=== PATIENT | female | born 2000 | race Caucasian/White ===

== ENCOUNTER 2022-03-14 17:26 | Emergency (ER) | payer OTHER ==
--- NOTE | 2022-03-14 18:08 | RAD REPORT ---
EXAM DESCRIPTION: RAD - Foot Left 3 View - 03/14/2022 6:02 pm CLINICAL HISTORY: PAIN COMPARISON: RIGHT FOOT W COMPARISON dated 05/24/2011 FINDINGS: Small calcaneal spurs are present. No acute fracture or dislocation is seen.
[2022-03-14] MEDS ORDERED: MORPHINE 4 MG/ML SYR ONE (20:36)
--- NOTE | 2022-03-14 20:40 | EDPHYS ---
Physician Documentation [facility] Name: Mayte Burton Age: 22 yrs Sex: Female : 2000 Arrival Date: 03/14/2022 Time: 17:30 Bed Treatment Private MD: ED Physician Logan Villalpando HPI: 03/14 17:53 This 22 yrs old Female presents to ER via Unassigned with complaints of Left Foot Pain. pm1 17:53 The patient presents with pain. The complaints affect the medial aspect of left foot. pm1 Context: resulted from an unknown cause, the patient can partially bear weight, the patient is able to ambulate, with moderate difficulty. 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 Modifying factors: The symptoms are alleviated by nothing. the symptoms are aggravated by weight bearing. Associated signs and symptoms: The patient has no apparent associated signs or symptoms, Pertinent negatives numbness, tingling. Treatment prior to arrival includes: prescription medications, hydrocodone. Severity of symptoms: in the emergency department the symptoms are actually worse. The patient has experienced similar episodes in the past, chronically. The patient has been recently seen by a physician: a timber estimator, yesterday, with similar presenting complaints, Patient was given steroid injection to the foot and given topical medications and wrap, hydrocodone for pain as needed. She was diagnosed with plantar fasciitis. 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 Flu vaccine is not up to date. - Social history:: Smoking status: Patient reports the use of cigarette tobacco products, denies chronic smoking, but will smoke occasionally, Patient uses alcohol, occasionally. ROS: 17:53 Constitutional: Negative for fever, chills, and weight loss, Cardiovascular: Negative pm1 for chest pain, palpitations, and edema, Respiratory: Negative for shortness of breath, cough, wheezing, and pleuritic chest pain. 17:53 Skin: Negative for injury, rash, and discoloration, Neuro: Negative for headache, weakness, numbness, tingling, and seizure. 17:53 MS/extremity: Positive for pain, of the medial aspect of left foot, Negative for decreased range of motion, deformity. 17:53 All other systems are negative. Exam: 20:33 Constitutional: This is a well developed, well nourished patient who is awake, alert, pm1 and in no acute distress. Head/Face: Normocephalic, atraumatic. 20:33 Skin: Warm, dry with normal turgor. Normal color with no rashes, no lesions, and no evidence of cellulitis. 20:33 Eyes: Exam is negative for acute changes, Extraocular movements: no acute changes, Conjunctiva: no acute changes, no injection. 20:33 ENT: Exam is negative for acute changes, Mouth: no acute changes, Lips: normal, moist, Oral mucosa: normal, pink and intact, moist. 20:33 Cardiovascular: Exam negative for acute changes, Rate: normal, Rhythm: regular, Pulses: no pulse deficits are appreciated. 20:33 Respiratory: Exam negative for acute changes, respiratory distress, shortness of breath. 20:33 Musculoskeletal/extremity: Extremities: grossly normal except: noted in the medial aspect of left foot: tenderness, There is no evidence of decreased ROM, deformity, swelling, ROM: intact in all extremities. 20:33 Neuro: Exam negative for acute changes, Orientation: is normal, Mentation: is normal, Motor: is normal, moves all fours. Vital Signs: 18:41 BP 124 / 75; Pulse 85; Resp 17; Temp 98.5; Pulse Ox 100% ; Weight 106.59 kg; Height 5 ap3 ft. 9 in. (175.26 cm); Pain 9/10; 20:39 Pulse 88; Resp 18; Pulse Ox 100% ; tw5 18:41 Body Mass Index 34.70 (106.59 kg, 175.26 cm) ap3 MDM: 17:37 Patient medically screened. pm1 20:34 Data reviewed: vital signs. Data interpreted: Pulse oximetry: on room air is 100 %. pm1 Interpretation: normal. Counseling: I had a detailed discussion with the patient and/or guardian regarding: the historical points, exam findings, and any diagnostic results supporting the discharge/admit diagnosis, radiology results, the need for outpatient follow up, a timber estimator, to return to the emergency department if symptoms worsen or persist or if there are any questions or concerns that arise at home. 20:36 ED course: Patient with prescription at home for hydrocodone that was prescribed by her pm1 timber estimator. Explained to patient and mother that plan in the ER is for breakthrough relief of pain with narcotic, morphine with the intention that the hydrocodone will be effective for helping manage her pain at home. Also explained we will not be able to write any pain medication by mouth that are more effective, stronger than hydrocodone. Patient has appointment with timber estimator on Friday. 03/14 17:46 Order name: Foot Left 3 View XRAY; Complete Time: 18:20 pm1 Administered Medications: 20:39 Drug: morphine 4 mg Route: IM; Site: right deltoid; tw5 20:40 Follow up: Response: No adverse reaction; Medication administered at discharge. tw5 21:04 Follow up: Response: No adverse reaction; Pain is decreased as6 21:04 Follow up: Response: RASS: Alert and Calm (0) as6 Disposition Summary: 03/14/22 20:38 Discharge Ordered Location: Home pm1 Problem: new pm1 Symptoms: have improved pm1 Condition: Stable pm1 Diagnosis - Pain in left foot - Plantar fasciitis pm1 Followup: pm1 - With: Emergency Department - When: As needed - Reason: Worsening of condition Followup: pm1 - With: Private Physician - When: 2 - 3 days - Reason: Recheck today's complaints, Continuance of care, Re-evaluation by your physician Discharge Instructions: - Discharge Summary Sheet pm1 - Plantar Fasciitis pm1 - Foot Pain pm1 Forms: - Medication Reconciliation Form pm1 - Thank You Letter pm1 - Antibiotic Education pm1 - Prescription Opioid Use pm1 - Work release form as6 Addendum: 03/17/2022 19:08 Co-signature as Attending Physician, Logan Villalpando MD. r n Signatures: Dispatcher [employer] EDLogan Carbajal MD MD rn Marinas, Patrick, REJI [employer] AND WATER FILLER pm1 Suzette Conklin RN RN ap3 Wood, Tiffany tw5 Ranjith Bailey RN as6
--- NOTE | 2022-03-14 20:40 | ER ---
Nurse's Notes [facility] Name: Mayte Burton Age: 22 yrs Sex: Female : 2000 Arrival Date: 03/14/2022 Time: 17:30 Bed Treatment Private MD: Diagnosis: Pain in left foot-Plantar fasciitis Presentation: 03/14 18:41 Chief complaint: Patient states: she has been having left foot pain for months and she ap3 has been getting steroid shots in the injured foot, patient states she had her most recent foot injection yesterday and the pain has just got worse since then. Coronavirus screen: At this time, the client does not indicate any symptoms associated with coronavirus-19. Ebola Screen: No symptoms or risks identified at this time. Initial Sepsis Screen: Does the patient meet any 2 criteria? No. Patient's initial sepsis screen is negative. Does the patient have a suspected source of infection? No. Patient's initial sepsis screen is negative. Risk Assessment: Do you want to hurt yourself or someone else? Patient reports no desire to harm self or others. Onset of symptoms is unknown. 18:41 Method Of Arrival: Wheelchair ap3 18:41 Acuity: SONIA 4 ap3 Triage Assessment: 18:44 General: Appears uncomfortable, Behavior is calm, cooperative. Pain: Complains of pain ap3 in left foot. Neuro: Level of Consciousness is awake, alert, obeys commands, Oriented to person, place, time, situation, Speech is normal. Cardiovascular: Patient's skin is warm and dry. Respiratory: Airway is patent Respiratory effort is even, unlabored, Respiratory pattern is regular, symmetrical. Musculoskeletal: Reports pain in medial aspect of left foot. 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 Flu vaccine is not up to date. - Social history:: Smoking status: Patient reports the use of cigarette tobacco products, denies chronic smoking, but will smoke occasionally, Patient uses alcohol, occasionally. Screenin:44 Abuse screen: Denies threats or abuse. Nutritional screening: No deficits noted. ap3 Tuberculosis screening: No symptoms or risk factors identified. 20:39 Fall Risk None identified. tw5 Assessment: 20:39 General: Appears in no apparent distress. Behavior is calm, cooperative, appropriate tw5 for age. Pain: Pain currently is 9 out of 10 on a pain scale. Vital Signs: 18:41 BP 124 / 75; Pulse 85; Resp 17; Temp 98.5; Pulse Ox 100% ; Weight 106.59 kg; Height 5 ap3 ft. 9 in. (175.26 cm); Pain 9/10; 20:39 Pulse 88; Resp 18; Pulse Ox 100% ; tw5 18:41 Body Mass Index 34.70 (106.59 kg, 175.26 cm) ap3 ED Course: 17:30 Patient arrived in ED. rg4 17:36 Edgar Mike NP is PHCP. pm1 17:36 Logan Villalpando MD is Attending Physician. pm1 18:04 Foot Left 3 View XRAY In Process Unspecified. EDMS 18:43 Triage completed. ap3 18:44 Arm band placed on left wrist. ap3 20:33 Mariah Londono is Primary Nurse. tw5 20:39 Patient has correct armband on for positive identification. tw5 20:39 No provider procedures requiring assistance completed. Patient did not have IV access tw5 during this emergency room visit. Administered Medications: 20:39 Drug: morphine 4 mg Route: IM; Site: right deltoid; tw5 20:40 Follow up: Response: No adverse reaction; Medication administered at discharge. tw5 21:04 Follow up: Response: No adverse reaction; Pain is decreased as6 21:04 Follow up: Response: RASS: Alert and Calm (0) as6 Medication: 20:39 VIS not applicable for this client. tw5 Outcome: 20:38 Discharge ordered by . pm1 20:39 Discharged to home ambulatory. tw5 20:39 Condition: good 20:39 Discharge instructions given to patient, Instructed on discharge instructions, follow up and referral plans. Demonstrated understanding of instructions, follow-up care. 21:04 Discharged to home via wheelchair. as6 21:13 Patient left the ED. tw5 Signatures: Dispatcher [employer] EDMS Edgar Mike NP HYDROMETEOROLOGIST pm1 Jazzy Tolbert rg4 Suzette Conklin RN RN ap3 Mariah Londono tw5 Ranjith Bailey, RN RN as6
[2022-03-14 21:53] VITALS: BP 124/75; TEMP 98.5; O2SAT 100
== END 2022-03-14 21:13 | disposition home or self-care (01) ==
LOC: ER 17:26
DX: M72.2 Plantar fascial fibromatosis (principal); Z88.1 Allergy status to other antibiotic agents
CPT/HCPCS: 96372; 99283

== ENCOUNTER 2022-09-20 06:24 | Day surgery (SDC) | payer OTHER ==
[2022-09-19 16:33] LABS: Absolute Lymphocytes (CBC) 2.8 K/uL (0.7-4.9); Hematocrit 40.6 % (36.0-45.0); Lymphocytes % 26.6 % (15.3-44.8); MCV 99.3 fL (80-100); MPV 8.1 fL (7.6-11.3); RBC Red Blood Cell Count 4.09 M/uL (3.86-4.86)
[2022-09-20] MEDS ORDERED: Ringers Lactate 1,000 ML IV ONE ×2 (06:50→08:54)
[2022-09-20] MEDS ORDERED: propofoL 200 MG/20 ML VIAL IV ONE ×2 (07:06→08:47)
[2022-09-20] MEDS ORDERED: FENTANYL CITR 100 MCG/2 ML ONE ×2 (07:06→07:50)
[2022-09-20] MEDS ORDERED: LIDOCAINE 2% MPF 5 ML VIAL ONE (07:07)
[2022-09-20] MEDS ORDERED: MIDAZOLAM HCL 2 MG/2 ML INJ ONE ×2 (07:08→08:44)
[2022-09-20] MEDS ORDERED: ONDANSETRON 4 MG/2 ML VIAL ONE ×2 (07:09→08:59)
[2022-09-20] MEDS ORDERED: GLYCOPYRROLATE 0.2 MG/ML SYR ONE ×2 (07:11)
[2022-09-20] MEDS ORDERED: ROCURONIUM 50 MG/5 ML VIAL IV ONE (07:11)
[2022-09-20] MEDS ORDERED: NEOSTIGMINE 1 MG/ML -10 ML VIAL ONE (07:12)
[2022-09-20] MEDS: BUPIVACAINE 0.5% PF 10 ML VIAL ONE ×2 (07:20→07:45)
[2022-09-20] MEDS: CEFOXITIN SODIUM 1 GM/VIAL ONE ×3 (07:20→07:30)
[2022-09-20] MEDS ORDERED: HYDROCODONE/APAP 7.5/325 MG TAB PO PRN (08:32)
--- NOTE | 2022-09-20 08:36 | P.OP ---
Date of Service: 09/20/22 Preop diagnosis: Chronic cholecystitis and biliary dyskinesia Postop diagnosis: Same Procedure performed: Laparoscopic cholecystectomy Surgeon: Derian Moyer MD Gear Shaver Set Up Operator: Jennifer SPENCER Estimated blood loss: Minimal Specimen: Gallbladder Findings: Chronic cholecystitis Anesthesia: General Complications: None Drains: None Fluids and blood products: Nonapplicable Disposition: Recovery room Operative note: Patient brought to the OR and placed in the supine position. General anesthesia begun. Patient prepped and draped in usual sterile fashion. Marcaine 0.5% infiltrated locally. 15 blade used to make a 1 cm supraumbilical midline incision. Subcutaneous tissue divided. Bleeding controlled with cautery. Fascia identified and divided. #1 Vicryl stay suture placed. Peritoneal cavity entered with sharp and blunt dissection. Three 5 mm trocars placed under direct vision. 1 trocar placed in the epigastric region just to the right of midline. 2 trocars placed in the right subcostal region. Laparoscopy revealed chronic inflammation of the gallbladder with some omental adhesions to the body of the gallbladder. Fundus retracted superiorly. Adhesions taken down with sharp and blunt dissection. Infundibulum identified and retracted inferolaterally. Cystic duct and cystic artery clearly identified with blunt dissection. Clips placed and both structures divided. Gallbladder removed from the liver bed utilizing cautery. Bleeding on the liver bed controlled with cautery. Gallbladder retrieved through the umbilicus via Endo Catch bag. Right upper quadrant irrigated. Effluent clear. No evidence of bleeding or bile leakage appreciated. Subsequently, all trocars removed under direct vision. Stay sutures tied to each other to reapproximate the fascial defect. Subcutaneous wounds irrigated and bleeding controlled cautery. 3-0 chromic used to reapproximate subcu tissue and close skin. Sterile dressing applied. Patient awakened and taken to recovery room in good general condition. CC: Dr. Dhillon's office
[2022-09-20] MEDS ORDERED: MEPERIDINE HCL 25 MG/ML SYR ONE (08:43)
[2022-09-20] MEDS: HYDROMORPHONE HCL 1 MG/ML INJ ONE ×6 (08:53→09:30)
[2022-09-20] MEDS: PROMETHAZINE INJ 25 MG/ML AMP ONE ×2 (09:12→09:18)
[2022-09-20] MEDS ORDERED: Mastisol Adhesive Liq ONE (10:00)
[2022-09-20 14:10] VITALS: BP 132/85; TEMP 99.3; O2SAT 98
== END 2022-09-20 11:40 | disposition home or self-care (01) ==
LOC: OR 06:24
PROVIDERS: ATTEND Surgery
PROC: 0FT44ZZ Resection of Gallbladder, Percutaneous Endoscopic Approach (ICD-10-PCS; principal; 2022-09-20 07:30)
DX: K81.1 Chronic cholecystitis (principal); K82.8 Other specified diseases of gallbladder
CPT/HCPCS: 85025; 36415; 84703; 88304; 47562; J2550; J2704 ×2; J2710; J2001; J2250 ×2; J3010 ×2; J2175; J1170 ×3; J0694; J2405 ×2; J7120 ×2